=== PATIENT | female | born 1950 | race Two or more races ===

== ENCOUNTER 2024-01-22 22:42 | Emergency (ER) | payer OTHER, MEDICAID, SELFPAY ==
[2024-01-22 22:44] VITALS: BMI 32.9
[2024-01-23 00:03] VITALS: BP 158/76; PULSE 73; RESP 16; TEMP 36.5; O2SAT 100
--- NOTE | 2024-01-23 00:08 | XR_ITS ---
Examination: CT abdomen and pelvis without contrast. Coronal 3-D reconstructions. Sagittal 2-D reconstructions. Date and time of exam:January 23, 2024 0019 hrs. Indications: Left lower back and abdominal pain left flank pain today Comparison: September 02, 2018 CTDI: vol (mGy): 9.78 DLP: (mGycm): 562 Technique: Axial images of the abdomen have been obtained, 3 mm slice thickness Intravenous contrast material has not been administered. Low dose protocols were performed. One or more of the following dose reduction techniques were used; automated exposure control, adjustment of the mA and/or KV according to patient size, use of iterative reconstruction technique. Findings: Liver is mildly irregular in contour, no focal liver lesions Absent gallbladder Spleen not enlarged No pancreatic or adrenal mass Mild left hydronephrosis secondary to 3 mm distal left ureterovesical junction calculus Aorta normal size Appendix not visualized Colonic diverticulosis with minimal inflammatory change about sigmoid diverticula No bowel obstruction Contracted urinary bladder Fat-containing inguinal hernias Moderate osteopenia Impression: Mild left hydronephrosis secondary to 3 mm distal left ureterovesical junction calculus Minimal sigmoid diverticulitis
--- NOTE | 2024-01-23 00:09 | PD.EDRME ---
Rapid Medical Screening Exam RME Arrival date/time: 01/22/24 22:42 74-year-old female with past medical history of diabetes and hypertension presents to the emergency department complaining of left flank pain with nausea and vomiting that started a couple hours ago. Chief Complaint: Back Pain/Injury Vital signs: Vital Signs Temperature 97.7 F 01/23/24 00:03 Pulse Rate 73 01/23/24 00:03 Respiratory Rate 16 01/23/24 00:03 Blood Pressure 158/76 H 01/23/24 00:03 Pulse Oximetry (%) 100 01/23/24 00:03 Oxygen Delivery Method Room Air 01/23/24 00:03 Vital signs reviewed by provider: Yes
[2024-01-23] MEDS: KETOROLAC INJ 60 MG/2 ML VIAL 30 MG IM (00:40)
[2024-01-23] MEDS: ONDANSETRON ODT 4 MG TABRAP PO (00:41)
--- NOTE | 2024-01-23 01:13 | PC.NURSE ---
PT AWAKE ALERT AND ORIENTED. PT REPORTS FEELING BETTER. PT DOES NOT WANT TO WAIT FOR TEST RESULTS. PT INFORMED OF RISKS INCLUDING UP TO . PT INFORMED TO RETURN FOR ANY WORSENING OF SYMPTOMS. PT AND SON VERBALIZED UNDERSTANDING.
[2024-01-23 01:20] LABS: Basophils % (Auto) 0 % (0-2.5); Eosinophils # (Auto) 0.1 Thou/mm3 (0.0-0.5); Eosinophils % (Auto) 2 % (0-10); Hematocrit 34.2 % (36.0-46.0); Hemoglobin 11.8 g/dL (12.0-16.0); Immature Granulocytes % (Auto) 0 % (0-0); Immature Granulocytes Auto 0.02 Thou/mm3 (0.00-0.00); Lymphocytes # (Auto) 1.3 Thou/mm3 (1.0-4.8); Lymphocytes % (Auto) 18 % (10-50); Mean Corpuscular HGB Conc 34.5 g/dl (31.0-37.0); Mean Corpuscular Hemoglobin 38.8 pg (25.0-35.0); Mean Corpuscular Volume 113 fL (80-100); Monocytes # (Auto) 0.6 Thou/mm3 (0.0-0.8); Monocytes % (Auto) 9 % (0-12); Neutrophils # (Auto) 4.9 Thou/mm3 (1.8-7.7); Neutrophils % (Auto) 71 % (37-80); Nucleated Red Blood Cell % 0 /100 WBC (0); Platelet Count 144 Thou/mm3 (140-440); RDW Standard Deviation 64.7 fL (36.4-46.3); Red Blood Count 3.04 Miln/mm3 (4.00-5.20)
--- NOTE | 2024-01-23 01:22 | PRELIM_ITS ---
CT scan of the abdomen and pelvis without intravenous contrast (axial sections with sagittal and blayne nal reformats) January 23, 2024 at 0019 hours Clinical History: Left flank pain rule out kidney ston e. Comparison: No prior study is available for comparison. Findings:The lung bases are clear.The panc reas, spleen and adrenals are unremarkable on this noncontrast study.Left UVJ stone measuring 0.3 cm , the stone is not visible on the flower maker image, mild left hydroureteronephrosis.Status post cholecyst ectomy.Irregular liver margins.No evidence of bowel obstruction. No evidence of appendicitis. There is no mesenteric or retroperitoneal adenopathy.The urinary bladder is unremarkable. There is no free fluid or free air.Degenerative changes of the imaged portions of the spine. No acute fractures.Diver ticulosis of the colon.Mild thickening of the sigmoid colon associated with mild peripheral fat stran ding, no perforation, no collections.Impression:Left UVJ stone associated with hydroureteronephrosis. Sigmoid colon findings are compatible with diverticulitis versus moderate sigmoiditis.Cirrhosis. Repo rt Electronically Signed By: Flex Ramirez 01/23/2024 1:19:54 AM [EST]
[2024-01-23 01:32] LABS: Path Review Blood Smear Sent to Pathologist
[2024-01-23 01:52] LABS: Alanine Aminotransferase 12 U/L (10-49); Albumin, Serum 4.1 gm/dL (3.4-4.8); Albumin/Globulin Ratio 1.4 (1.2-2.2); Alkaline Phosphatase 99 U/L (46-116); Anion Gap 3 (7-16); Aspartate Amino Transferase 23 U/L (0-34); BUN/Creatinine Ratio 13 Ratio (12-20); Bilirubin,Total 0.6 mg/dL (0.3-1.2); Blood Urea Nitrogen 12 mg/dL (9-23); Calcium 9.8 mg/dL (8.3-10.6); Calcium (Corrected) 9.8 mg/dL (8.5-10.1); Carbon Dioxide 29.6 mMol/L (20.0-31.0); Chloride 107 mMol/L (98-107); Creatinine (Component) 0.9 mg/dL (0.6-1.3); Estimated Creatinine Clearance 48.8 mL/min (>60); Glucose 132 mg/dL (74-106); Lipase 31 U/L (12-53); Osmolality,Calculated 281 (275-295); Potassium 4.6 mMol/L (3.4-5.1); Sodium 140 mMol/L (136-145); Total Protein 7.1 gm/dL (5.7-8.2); eGFR > 60 See Note
== END 2024-01-23 01:25 | disposition left against medical advice (07) ==
PROVIDERS: Emergency Provider Emergency Medicine; PCP Family Medicine
DX: R10.32 Left lower quadrant pain (principal); R11.2 Nausea with vomiting, unspecified; Z53.29 Procedure and treatment not carried out because of patient's decision for other reasons
CPT/HCPCS: 36415; 74176; 80053; 81001; 83690; 85025; 96372; 99281; J1885; Q0162

== ENCOUNTER 2024-07-02 23:32 | Emergency (ER) | payer OTHER, MEDICAID, SELFPAY ==
[2024-07-02 23:47] VITALS: BP 136/77; PULSE 75; RESP 18; TEMP 36.9; O2SAT 99; BMI 31.1
--- NOTE | 2024-07-03 00:27 | PD.EDRME ---
Rapid Medical Screening Exam RME Arrival date/time: 07/02/24 23:32 Chief Complaint: Nausea/Vomiting/Diarrhea Time Seen by Provider: 07/03/24 00:00 Vital signs: Vital Signs Temperature 98.5 F 07/02/24 23:47 Pulse Rate 75 07/02/24 23:47 Respiratory Rate 18 07/02/24 23:47 Blood Pressure 136/77 H 07/02/24 23:47 Pulse Oximetry (%) 99 07/02/24 23:47 Oxygen Delivery Method Room Air 07/02/24 23:47 Vital signs reviewed by provider: Yes RME Narrative: 74-year-old female presents with vomiting and abdominal pain, onset today. She states that the abdominal pain woke her up from a nap around 3 PM. She has had 3 bouts of emesis since. She initially had brown emesis and is now yellow in color. She denies any fever or chills. She complains of pain primarily in the epigastric and right lower quadrant areas. She has had a cholecystectomy, but no major appendix.
--- NOTE | 2024-07-03 00:39 | XR_ITS ---
Examination: CT abdomen with intravenous contrast CT pelvis with intravenous contrast 2-D coronal reconstructions 2-D sagittal reconstructions Date and time of exam: July 03, 2024 0345 hrs. Indications: Right upper abdominal pain and vomiting onset today CTDI: vol (mGy) 8.85 DLP: (mGycm) 465 Technique: Multiple axial sections of the abdomen and pelvis have been obtained. 64 slice high-resolution scanner used. 3 mm axial sections have been obtained, post intravenous injection 60 cc [id number] 2-D sagittal, coronal reconstructions obtained. Low dose protocols were performed. One or more of the following dose reduction techniques were used; automated exposure control, adjustment of the mA and/or KV according to patient size, use of iterative reconstruction technique. Findings: Liver is mildly irregular in contour no focal liver or splenic lesions Absent gallbladder No pancreatic or adrenal mass No renal or ureteral calculi, no hydronephrosis Absent appendix No bowel obstruction Colonic diverticulosis, no diverticulitis Urinary bladder intact Fat-containing inguinal hernias Impression: Suspect primary hepatocellular disease Absent appendix No bowel obstruction or diverticulitis
[2024-07-03 01:39] LABS: Lactate (Lactic Acid) 1.4 mMol/L (0.4-2.0)
[2024-07-03 01:42] LABS: Collection Type, Urine Clean Catch; RBC,Urine 0 /hpf (0-3); WBC,Urine 0 /hpf (0-5)
[2024-07-03 01:44] LABS: Basophils % (Auto) 0 % (0-2.5); Eosinophils # (Auto) 0.1 Thou/mm3 (0.0-0.5); Eosinophils % (Auto) 2 % (0-10); Hematocrit 28.3 % (36.0-46.0); Hemoglobin 10.3 g/dL (12.0-16.0); Immature Granulocytes % (Auto) 0 % (0-0); Immature Granulocytes Auto 0.01 Thou/mm3 (0.00-0.00); Lymphocytes # (Auto) 0.5 Thou/mm3 (1.0-4.8); Lymphocytes % (Auto) 9 % (10-50); Mean Corpuscular HGB Conc 36.4 g/dl (31.0-37.0); Mean Corpuscular Volume 121 fL (80-100); Monocytes # (Auto) 0.2 Thou/mm3 (0.0-0.8); Monocytes % (Auto) 4 % (0-12); Neutrophils # (Auto) 4.5 Thou/mm3 (1.8-7.7); Neutrophils % (Auto) 86 % (37-80); Nucleated Red Blood Cell % 0 /100 WBC (0); Platelet Count 117 Thou/mm3 (140-440); RDW Standard Deviation 64.1 fL (36.4-46.3); Red Blood Count 2.34 Miln/mm3 (4.00-5.20); White Blood Count 5.2 Thou/mm3 (3.6-11.0)
[2024-07-03 02:00] LABS: INR 1.1 (0.9-1.3); Partial Thromboplastin Time 22.2 Seconds (22.0-36.0); Prothrombin Time 12.2 Seconds (9.0-12.2)
[2024-07-03 02:01] LABS: Bilirubin,Urine Negative (Negative); Blood,Urine Negative (Negative); Clarity,Urine Turbid (Clear/Hazy); Color,Urine Lt-Yellow (Lt Yel-Yel); Glucose, Urine Negative (Negative); Ketones,Urine 1+ (Negative); Leukocyte Esterase,Urine Negative (Negative); Nitrite,Urine Negative (Negative); PH,Urine 8.5 (5.0-7.0); Protein,Urine Trace (Neg - Trace); Specific Gravity,Urine 1.019 (1.001-1.035); Squamous Epithelial Cell,Urine < 1 /hpf (0-5)
[2024-07-03 02:05] LABS: Alanine Aminotransferase 13 U/L (10-49); Albumin, Serum 3.9 gm/dL (3.4-4.8); Albumin/Globulin Ratio 1.3 (1.2-2.2); Alkaline Phosphatase 87 U/L (46-116); Amylase 99 U/L (30-118); Anion Gap 8 (7-16); Aspartate Amino Transferase 29 U/L (0-34); BUN/Creatinine Ratio 17 Ratio (12-20); Bilirubin,Total 1.4 mg/dL (0.3-1.2); Blood Urea Nitrogen 10 mg/dL (9-23); Calcium 8.9 mg/dL (8.3-10.6); Carbon Dioxide 26.5 mMol/L (20.0-31.0); Chloride 108 mMol/L (98-107); Creatinine (Component) 0.6 mg/dL (0.6-1.3); Glucose 147 mg/dL (74-106); Lipase 28 U/L (12-53); Osmolality,Calculated 285 (275-295); Potassium 3.8 mMol/L (3.4-5.1); Sodium 142 mMol/L (136-145); Total Protein 6.9 gm/dL (5.7-8.2); eGFR > 60 See Note
[2024-07-03 02:13] VITALS: BP 155/76; PULSE 64; RESP 22; TEMP 36.9; O2SAT 100
--- NOTE | 2024-07-03 02:27 | PD.EDNV ---
Nausea/Vomit./Diarrhea-RME/HPI General Chief complaint: Nausea/Vomiting/Diarrhea Stated complaint: VOMITING Time Seen by Provider: 07/03/24 00:00 Arrival date/time: 07/02/24 23:32 RME / HPI RME / HPI Narrative: 74-year-old female presents with vomiting and abdominal pain, onset today. She states that the abdominal pain woke her up from a nap around 3 PM. She has had 3 bouts of emesis since. She initially had brown emesis and is now yellow in color. She denies any fever or chills. She complains of pain primarily in the epigastric and right lower quadrant areas. She has had a cholecystectomy, but no major appendix. DR. KEENAN BYRD ED EVALUATION: 74 y/o female with Hx of Cerebrovascular Accident, Coronary Artery Disease, Congestive Heart Failure, Hypertension, Gall Bladder Disease, Gastroesophageal Reflux Disease, Obesity, Kidney Stones, Endometriosis, Arthritis, Hypothyroidism, Anemia, Depression, and Anxiety presents to ED c/o nausea, vomiting, abdominal pain, burning epigastric sensation which radiates to the chest, and headache x approximately 12 hours. Patient went to lay down for a nap when abdominal pain woke her up and she vomited x3. Denies diarrhea. No other concerns or complaints expressed at this time. Related Data Home Medications ?Medication ?Instructions ?Recorded ?Confirmed carvedilol 6.25 mg tablet 6.25 mg PO BID 08/13/18 09/06/18 pantoprazole 20 mg tablet,delayed 20 mg PO QDAY 08/13/18 09/06/18 release paroxetine HCl 10 mg tablet 10 mg PO DAILY 08/13/18 09/06/18 levothyroxine 100 mcg tablet 100 mcg PO QDAY 09/02/18 09/06/18 Previous Rx's ?Medication ?Instructions ?Recorded ciprofloxacin HCl 500 mg tablet 500 mg PO BID #20 tabs 09/04/18 (Cipro) aluminum-mag hydroxide-simethicone 10 ml PO TID PRN indigestion 07/03/24 400 mg-400 mg-40 mg/5 mL oral susp #3,000 mL (Mylanta Maximum Strength) famotidine 20 mg tablet (Acid 20 mg PO BID GERD #20 tabs 07/03/24 Controller) hydrocodone 5 mg-acetaminophen 325 1 tab PO Q4H PRN pain #14 tabs 07/03/24 mg tablet ondansetron 4 mg disintegrating 4 mg PO Q6H PRN nausea and 07/03/24 tablet vomiting #20 tabs sucralfate 1 gram tablet 1 g PO TID Gastritis 10 days #30 07/03/24 tabs Allergies Allergy/AdvReac Type Severity Reaction Status Date / Time losartan Allergy Mild Chest Pain Verified 07/02/24 23:33 amlodipine (From Norvasc) Allergy Verified 07/02/24 23:33 benazepril Allergy Verified 07/02/24 23:33 isosorbide (From Imdur) Allergy Verified 07/02/24 23:33 egg AdvReac Intermediate STOMACH Verified 07/02/24 23:33 PAIN Review of Systems Review of Systems Systems Reviewed: All systems reviewed, normal except as documented Past Medical History Past Medical History NEUROLOGIC: Positive Neurological Disorders and Cerebrovascular Accident CARDIAC: Positive Cardiac Disorders, Coronary Artery Disease, Congestive Heart Failure and Hypertension GASTROINTESTINAL: Positive Gastrointestinal Disorders, Gall Bladder Disease, Gastroesophageal Reflux Disease and Obesity GENITOURINARY: Positive Genitourinary Disorders and Kidney Stones REPRODUCTIVE: Positive Endometriosis and Previous Pregnancies MUSCULOSKELETAL: Positive Musculoskeletal Disorders and Arthritis ENDOCRINE: Positive Endocrine Disorders and Hypothyroidism HEMATOLOGIC: Positive Blood Disorders and Anemia PSYCHO/SOCIAL: Positive Depression and Anxiety OTHER HISTORY: Positive Shingles and Blood Transfusions Family History FAMILY HISTORY: Positive Family Cardiac Disorders, Family Gastrointestinal Problems, Family Cancer and Family Surgery Surgical History SURGICAL: Positive Abdominal Surgery, Hysterectomy and Tubal Ligation ED Exam Narrative Physical exam: GENERAL APPEARANCE: alert and oriented x 4, well-developed, well-nourished, no acute distress VITALS: All vitals were reviewed and the pulse ox is 97% on room air, which is normal according to my interpretation. HEENT: Normocephalic, atraumatic; pupils equal, round, reactive to light; EOMI; mucous membranes pink, moist; oropharynx clear NECK: Supple LUNGS: CTABL; no wheezes, no rales, no rhonchi HEART: Regular rate, regular rhythm; normal S1, S2; no murmurs ABDOMEN: Mild to moderate tenderness on palpation of LLQ, RLQ, and epigastric regions without rebound or guarding, no rigidity; no masses, no organomegaly, no hernia BACK: no CVA tenderness EXTREMITIES: atraumatic; no edema NEUROLOGIC: awake; alert and oriented x4; cranial nerves II-XII grossly intact; no focal sensory or motor deficits PSYCHIATRIC: appropriate mood and affect SKIN: warm, dry, normal color; no rashes Course Quality Measures none Orders Category Date Time Status CT Screening NOW Care 07/03/24 00:[address] Screening X1 Care 07/03/24 00:39 Completed IV [Insert IV] NOW Care 07/03/24 00:43 Completed NPO STAT Care 07/03/24 00:[address] abdomen pelvis w con Stat Exams 07/03/24 00:39 Completed XR chest 1V portable Stat Exams 07/03/24 02:34 Completed Amylase Stat Lab 07/03/24 01:30 Completed Blood Culture (Lab) Stat Lab 07/03/24 01:20 Results CBC Stat Lab 07/03/24 01:30 Completed Comprehensive Metabolic Panel Stat Lab 07/03/24 01:30 Completed Lactate (Lactic Acid) Stat Lab 07/03/24 01:30 Completed Lipase Stat Lab 07/03/24 01:30 Completed PT [Prothrombin Time with INR] Stat Lab 07/03/24 01:30 Completed PTT [Partial Thromboplastin Time] Stat Lab 07/03/24 01:30 Completed Path Review Blood Smear Stat Lab 07/03/24 01:30 Completed Urinalysis Stat Lab 07/03/24 01:22 Completed Urine Culture Stat Lab 07/03/24 01:22 Received Famotidine Inj [Pepcid Inj] Med 07/03/24 02:32 Discontinued 20 mg IVP X1 ONE HYDROmorphone INJ [Dilaudid Inj] Med 07/03/24 05:08 Discontinued 0.5 mg IVP X1 ONE Ondansetron Inj [Zofran Inj] Med 07/03/24 02:32 Discontinued 4 mg IV X1 ONE Sodium Chloride 0.9% 500 ml [Ns] 500 ml Med 07/03/24 00:43 Discontinued IV 999 mls/hr mg Hyd/Al Hyd/Twyla Susp [Maalox Susp] Med 07/03/24 02:32 Discontinued 30 ml PO X1 ONE Vital Signs Vital signs: Vital Signs Temperature 98.5 F 07/02/24 23:47 Pulse Rate 75 07/02/24 23:47 Respiratory Rate 18 07/02/24 23:47 Blood Pressure 136/77 H 07/02/24 23:47 Pulse Oximetry (%) 99 07/02/24 23:47 Oxygen Delivery Method Room Air 07/02/24 23:47 Nausea/Vomiting/Diarrhea MDM Narrative MDM Narrative:: Scribe Attestation: I, Cathleen Mcgrath, am scribing for and in the presence of Dr. Cast. CBC, CMP, Lactic Acid, Amylase, Lipase, and urinalysis are all within normal limits. CXR and CT abdomen pelvis are negative for any acute findings. 0511: Pain is now in the epigastric region. Malox and Pepcid helped somewhat. Patient will be referred to Dr. Ng and will be discharged. Provider Notation: Although this document has been carefully reviewed, there may still be some phonetic and other typographical errors. These errors are purely grammatical due to imperfections in the software program and should not be construed in any way to compromise the substance of the patient's medical care during this visit. Patient data External records reviewed:: [facility] previous records (Prior ED records reviewed 01/23/24. Patient was seen for Unspecified abdominal pain.) Clinical information provided by:: patient and family (son) Social determinants that could affect healthcare access:: none Patient has the following chronic illnesses:: Cerebrovascular Accident, Coronary Artery Disease, Congestive Heart Failure, Hypertension, Gall Bladder Disease, Gastroesophageal Reflux Disease, Obesity, Kidney Stones, Endometriosis, Arthritis, Hypothyroidism, Anemia, Depression, and Anxiety How is presenting disease/condition affected by chronic disease/condition?: exacerbated by Evaluation data The following diagnostics were reviewed and interpreted by me:: lab results and radiology exam(s) Lab and/or radiology exams considered but not ordered:: None Interpretation Summary: CXR shows normal cardiac silhouette, normal sharp diaphragmatic edge, no infiltrates, normal costophrenic angles, according to my interpretation. Telerad Preliminary Report Draft Patient: SHARITA RICKS. Record#: [id number] Birthdate: 1950 Age/Sex: 74 / F [facility]: Ordering Physician: Date of Service: Procedure(s): Accession Number(s): cc: ~ CT scan of the abdomen and pelvis with intravenous contrast (axial sections with sagittal and coronal reformats) July 03, 2024 0345 hours Clinical History: RLQ pain with vomiting Compared with the prior study dated January 23, 2024. Findings: The lung bases are clear. The gallbladder is surgically absent. The liver, pancreas, spleen, kidneys and adrenals are unremarkable. No evidence of bowel obstruction. A moderate amount of fecal material is present in the colon. There are multiple colonic diverticula without evidence of diverticulitis. The appendix is not definitively visualized; however, there is no evidence of inflammatory process in the right lower quadrant to suggest appendicitis. There is no mesenteric or retroperitoneal adenopathy. The urinary bladder is unremarkable. There is no free fluid or free air. There is a chronic wedge compression deformity of the T12 vertebral body. There is minimal anterolisthesis of L4 over L5. Degenerative changes are identified in the spine. Impression: No evidence to suggest appendicitis although the appendix remains nonvisualized. Report Electronically Signed By: Bhargavi Melgoza 07/03/2024 4:55:32 AM Medications / Prescriptions Medications / Prescriptions considered but not ordered:: None Medication administrations:: Medication Administration History Discontinued Medications Al Hydrox/Mg Hydrox/Simethicone (Mg Hyd/Al Hyd/Twyla (Maalox Reg) Susp 30 Ml Udc) 30 ml PO X1 ONE Stop: 07/03/24 02:33 Last Admin: 07/03/24 03:05 Dose: 30 ml Documented By: BD Famotidine (Famotidine Inj 10 Mg/Ml Vial 2 Ml) 20 mg IVP X1 ONE Stop: 07/03/24 02:33 Last Admin: 07/03/24 03:05 Dose: 20 mg Documented By: BD Hydromorphone HCl (Hydromorphone Inj 2 Mg/Ml Vial) 0.5 mg IVP X1 ONE Stop: 07/03/24 05:09 Last Admin: 07/03/24 05:17 Dose: 0.5 mg Documented By: BD Sodium Chloride (Ns) 500 mls @ 999 mls/hr IV .Q31M ONE Stop: 07/03/24 01:13 Last Infusion: 07/03/24 03:44 Dose: Infused Documented By: Admin: 07/03/24 02:45 Dose: 999 mls/hr Documented By: BD Ondansetron HCl (Ondansetron Inj 2 Mg/Ml Inj 2 Ml) 4 mg IV X1 ONE; Protocol Stop: 07/03/24 02:33 Last Admin: 07/03/24 03:05 Dose: 4 mg Documented By: BD See above if any Consultations Consultation(s) initiated? (list below): No Diagnosis Nausea Differential Diagnosis: food poisoning, gastroenteritis, drug-induced nausea and vomiting, dehydration and other (Viral illness vs GERD vs Gastritis) Most likely diagnosis given after review of the tests above:: nausea and vomiting, acute epigastric pain Admission Indicated Admission indicated?: not indicated Explain why admission is indicated or not indicated:: Does not meet admission criteria Admission Request Was there a request for admission?: No Disposition Plan Disposition Plan: Discharge Discharge Attestation Discharge Attestation: The patient and all family members were given an opportunity to ask questions and understood the discharge instructions. Discharge instructions specifically effects, indications for sooner follow up or return to the emergency department, and the expected course of current diagnosis. Patient condition: Stable Discharge Plan Plan Patient Disposition: HOME (Self Care) Disposition Comment: Stable for discharge home Patient condition on transfer: Stable Prescriptions/Referrals Prescriptions/Med Rec: New famotidine [Acid Controller] 20 mg tablet 20 mg PO BID Qty: 20 0RF alum-mag hydroxide-simeth [Mylanta Maximum Strength] 400-400-40 mg/5 mL suspension 10 ml PO TID PRN (Reason: indigestion) Qty: 3000 0RF sucralfate 1 gram tablet 1 g PO TID 10 Days Qty: 30 0RF ondansetron 4 mg tablet,disintegrating 4 mg PO Q6H PRN (Reason: nausea and vomiting) Qty: 20 0RF hydrocodone-acetaminophen 5-325 mg tablet 1 tab PO Q4H MDD 6 tabs PRN (Reason: pain) Qty: 14 0RF No Action levothyroxine 100 mcg Tablet 100 mcg PO QDAY ciprofloxacin HCl [Cipro] 500 mg tablet 500 mg PO BID Qty: 20 0RF carvedilol 6.25 mg Tablet 6.25 mg PO BID paroxetine HCl 10 mg Tablet 10 mg PO DAILY pantoprazole 20 mg Tablet,Delayed Release (Dr/Ec) 20 mg PO QDAY Referrals: Flavia Ng MD [Physician] - In 1 week Tato Gee MD [Primary Care Provider] - In 1 week Problem List Clinical Impression: Acute epigastric pain, Nausea & vomiting Patient/Caregiver Discharge Instructions Discharge Activity: activity as tolerated Education Materials: ED Diet for Vomiting or ..., ED Epigastric Pain (Uncertain Cause) Additional Instructions: Please return to the emergency department if you have any worsening or any further medical problems and we will help you. Otherwise you should follow-up with your primary care doctor within the next several days. I have given you contact information for Dr. Ng. Dr. Ng is our aquaculture program director who is on-call for the ER. Please call his office and make a follow-up appointment. You may end up needing something called endoscopy. Endoscopy is when the put a camera down your throat to take pictures of your stomach to make sure you do not have gastritis or maybe an ulcer. There are several medications waiting for you at the pharmacy. One of these is called hydrocodone/acetaminophen. This is a narcotic medicine and you should take it when you are having severe pain only. You cannot drive after taking this medication. The other medications are designed to make your symptoms go away. Print Language: Marshallese Stand Alone Forms: [employer] Award Info., Patient Portal Info Letter
--- NOTE | 2024-07-03 02:34 | XR_ITS ---
Examination: AP chest single view Technique: AP portable upright chest single view Exam date and time: July 03, 2024 0409 hrs. Comparison October 08, 2018 Indications: Abdominal pain and vomiting today. Findings: Normal heart size Mild vascular congestion. No aspiration pneumonia. Moderate osteopenia Impression: No aspiration pneumonia
[2024-07-03] MEDS: SODIUM CHLORIDE 0.9% 500 ML 500 ML 999 ML IV (02:45)
[2024-07-03] MEDS: ONDANSETRON INJ 2 MG/ML INJ 2 ML 4 MG IV (03:05)
[2024-07-03] MEDS: FAMOTIDINE INJ 10 MG/ML VIAL 2 ML 20 MG IVP (03:05)
[2024-07-03] MEDS: MG HYD/AL HYD/SIME (Maalox Reg) SUSP 30 ML UDC PO (03:05)
[2024-07-03 03:34] VITALS: BP 147/75; PULSE 72; RESP 17; TEMP 36.9; O2SAT 95
[2024-07-03 04:49] LABS: Path Review Blood Smear Sent to Pathologist
--- NOTE | 2024-07-03 04:56 | PRELIM_ITS ---
CT scan of the abdomen and pelvis with intravenous contrast (axial sections with sagittal and coronal reformats) July 03, 2024 0345 hours Clinical History: RLQ pain with vomiting Compared with the prior study dated January 23, 2024. Findings: The lung bases are clear. The gallbladder is surgically absent. The liver, pancreas, spleen, kidneys and adrenals are unremarkable. No evidence of bowel obstruction. A moderate amount of fecal material is present in the colon. There are multiple colonic diverticula without evidence of diverticulitis. The appendix is not definitively visualized; however, there is no evidence of inflammatory process in the right lower quadrant to suggest appendicitis. There is no mesenteric or retroperitoneal adenopathy. The urinary bladder is unremarkable. There is no free fluid or free air. There is a chronic wedge compression deformity of the T12 vertebral body. There is minimal anterolisthesis of L4 over L5. Degenerative changes are identified in the spine. Impression: No evidence to suggest appendicitis although the appendix remains nonvisualized. Report Electronically Signed By: Bhargavi Melgoza 07/03/2024 4:55:32 AM [EST]
[2024-07-03 05:00] VITALS: BP 135/79; PULSE 80; RESP 16; TEMP 36.9; O2SAT 97
[2024-07-03] MEDS: HYDROmorphone INJ 2 MG/ML VIAL 0.5 MG IVP (05:17)
== END 2024-07-03 05:32 | disposition home or self-care (01) ==
PROVIDERS: Physician Assistant; Emergency Provider Emergency Medicine; PCP Family Medicine
DX: R11.2 Nausea with vomiting, unspecified (principal); R10.13 Epigastric pain
CPT/HCPCS: 36415; 71045; 74177; 80053; 81001; 82150; 83605; 83690; 85025; 85610; 85730; 87040; 87086; 96361; 96374; 96375; 99285; A4649; J1171; J2405; J3490; J7040; Q9967; A9270